=== PATIENT | female | born 1955 | race Caucasian/White ===

== ENCOUNTER 2017-06-03 12:52 | Emergency (ER) | payer BC, OTHER ==
[~2017-06-03] VITALS: Ht 170.2 cm; Wt 131.5 kg
--- NOTE | 2017-06-03 13:13 | ED Upper Extremity ---
General Stated Complaint: ARM INJURY Source: patient, family Exam Limitations: no limitations History of Present Illness Time seen by provider: 13:08 Initial Comments 62-year-old white female presents stating injury to her right arm when she fell while walking down steps shortly prior to presentation emergency department I believe her mechanism of injury was that she missed the banister with her left arm and then fell onto the right shoulder on the steps. She said complaint of pain where she felt a crack when she struck the stairs. The patient's pain is over the impact area located over the lateral portion of the proximal right humerus. The patient denies associated paresthesias or weakness to the right upper extremity. She denies other significant injury interaction. Past medical history pertinent to the present illness includes previous rotator cuff surgery to the right shoulder. Allergies and Home Medications Allergies Coded Allergies: No Known Drug Allergies (Unverified , 06/03/17) Constitutional: No chills, No fever EENTM: No hearing loss, No vision loss Respiratory: No cough Cardiovascular: No chest pain Gastrointestinal: no symptoms reported Genitourinary: no symptoms reported : No Musculoskeletal: see HPI, No back pain, No other (pain over the Roxanol portion of the right humerus.) Skin: no symptoms reported Psychiatric/Neurological: No Symptoms Reported Past Rhjpsav-Qzleep-Agmgod Hx Patient Social History Recent Foreign Travel: No Contact w/Someone Who Travel: No Reviewed Nursing Assessment Reviewed/Agree w Nursing PMH: Yes Physical Exam Vital Signs Vital Sign - Last 12Hours 06/03/17 12:52 Temp 98.1 B/P (MAP) 142/70 Pulse Ox 98 Capillary Refill : General Appearance: WD/WN, moderate distress HEENT: normal ENT inspection Neck: full range of motion, supple, normal inspection Cardiovascular: regular rate, rhythm, no edema, no gallop Respiratory: chest non-tender, lungs clear, normal breath sounds, no respiratory distress, no accessory muscle use Gastrointestinal: normal bowel sounds, non tender, soft Back: normal inspection, no CVA tenderness Shoulder: asymmetry, bone tenderness (the right humeral neck.), deformity (the superior portion of the right shoulder joint.), limited ROM Elbow/Forearm: normal inspection Wrist: Yes normal inspection Hand: normal inspection Neurologic/Tendon: normal sensation, normal motor functions, normal tendon functions Neurologic/Psychiatric: No no motor/sensory deficits, alert, normal mood/affect Skin: other (several small abrasions are noted over the anterior aspect of both knees.) Progress/Results/Core Measures Results/Orders My Orders Orders - NA MUNOZ MD Shoulder, Right, 3 Views (06/03/17 12:59) Fentanyl Injection (Sublimaze Injection (06/03/17 13:00) Ns Iv 1000 Ml (Sodium Chloride 0.9%) (06/03/17 13:00) Ondansetron Injection (Zofran Injectio (06/03/17 13:00) Fentanyl Injection (Sublimaze Injection (06/03/17 13:59) Midazolam Injection (Versed Injection) (06/03/17 14:00) Shoulder, Right, 1 View (06/03/17 14:15) Medications Given in ED Current Medications Medications Dose Ordered Sig/Malissa Route Start Time Stop Time Status Last Admin Dose Admin Fentanyl Citrate 50 mcg ONCE ONCE IVP 06/03/17 13:00 06/03/17 13:08 DC 06/03/17 13:29 50 MCG Midazolam HCl 4 mg ONCE ONCE IVP 06/03/17 14:00 06/03/17 14:01 DC 06/03/17 14:16 4 MG Ondansetron HCl 4 mg ONCE ONCE IVP 06/03/17 13:00 06/03/17 13:08 DC 06/03/17 13:29 4 MG Vital Signs/I&O Vital Sign - Last 12Hours 06/03/17 06/03/17 06/03/17 12:52 13:29 14:16 Temp 98.1 98.3 98.3 B/P (MAP) 142/70 Pulse Ox 98 Progress Note : Time: 14:23 Progress Note After discussion of the risks and benefits involved with a shoulder reduction the patient signed for the consent. IV Versed and fentanyl were used with good effect and the patient's shoulder was reduced. Post reduction x-ray appeared to demonstrate satisfactory alignment of the shoulder joint. There is normal neurovascular exam following the reduction. Patient tolerated the procedure well. I discussed findings with patient and family. Departure Impression Impression: Primary Impression: Dislocation of left shoulder joint Qualified Codes: S43.005A - Unspecified dislocation of left shoulder joint, initial encounter Disposition: 01 HOME, SELF-CARE Condition: Improved Departure-Patient Inst. Decision time for Depature: 14:24 Referrals: HAYLEY JAQUEZ MD (PCP) Primary Care Physician ROSALIA ROCHE MD Patient Instructions: DISLOCATED-JOINT Add. Discharge Instructions: Follow-up with your primary care physician and Dr. ROCHE on Tuesday. Vicodin for pain. Shoulder sling for comfort. Return if any problems or questions. NA MUNOZ MD Jun 03, 2017 13:13
[2017-06-03] MEDS: fentaNYL INJECTION 100 MCG/2 ML AMP IVP ONE (13:29)
[2017-06-03] MEDS: ONDANSETRON 4 MG/2 ML (SDV) Z0FRAN IVP ONE (13:29)
[2017-06-03] MEDS: NS IV 1000 ML 1,000 ML IV SCH (14:00)
[2017-06-03] MEDS: fentaNYL INJECTION 100 MCG/2 ML AMP IVP STA (14:16)
[2017-06-03] MEDS: MIDAZOLAM 5 MG/5 ML (VERSED) VIAL IVP ONE (14:16)
--- NOTE | 2017-06-03 14:18 | Diagnostic Imaging Report ---
INDICATION: Fall with pain. FINDINGS: There is anterior subcoracoid complete glenohumeral dislocation. No obvious acute fracture deformity. The post reduction radiographs recommended. There is bone anchor in the humeral head. There are arthritic changes to the AC joint. No AC joint separation. IMPRESSION: Anterior subcoracoid glenohumeral dislocation. Dictated by: Dictated on workstation # [id number]
--- NOTE | 2017-06-03 14:33 | Diagnostic Imaging Report ---
INDICATION: Post reduction. FINDINGS: There is successful reduction of the previous glenohumeral dislocation and acute fracture is not appreciable. IMPRESSION: There has been interval successful reduction of the prior subcoracoid glenohumeral dislocation. Dictated by: Dictated on workstation # [id number]
--- NOTE | 2017-06-03 15:42 | Diagnostic Imaging Report ---
INDICATION: Post reduction. COMPARISON: 06/03/2017 at 2:19 p.m. TIME OF EXAM: 06/03/2017 at 3:26 p.m. EXAMINATION: Two views of the shoulder were obtained. FINDINGS: There appears to be satisfactory reduction of the dislocation at the glenohumeral joint seen on a prior film from earlier this same date. The humeral head appears migrated cephalad, possibly related to rotator cuff tear. There are postoperative changes of the humeral head with multiple metallic anchors. No acute fracture is suspected. There are degenerative changes of the acromioclavicular joint. IMPRESSION: Alignment at the glenohumeral joint appears appropriate without evidence of fracture. There is cephalad migration of the humeral head suggestive of rotator cuff tear. There are postoperative changes suggestive of prior rotator cuff repair. Dictated by: Dictated on workstation # [id number]
[2017-06-03 16:00] VITALS: BP 138/68
== END 2017-06-03 16:00 | disposition home or self-care (01) ==
LOC: ER 12:59
DX: S43.005A Unspecified dislocation of left shoulder joint, initial encounter (principal); W10.9XXA Fall (on) (from) unspecified stairs and steps, initial encounter
CPT/HCPCS: 73020; 73030; 93041

== ENCOUNTER → 2019-06-19 | Outpatient (CLI) | payer BC ==
--- NOTE | 2019-06-19 13:51 | Diagnostic Imaging Report ---
INDICATION: Right hip pain. COMPARISON: None. FINDINGS: Two views of the right hip were obtained and show no fractures, dislocations, or other acute bony abnormalities. Joint spaces are well maintained throughout. The soft tissues appear unremarkable. No radiopaque foreign bodies are identified. IMPRESSION: Unremarkable radiographic exam of the right hip. Dictated by: Dictated on workstation # [id number]
== END ==
LOC: RAD FS 13:38
PROVIDERS: ATTEND Family Medicine
DX: M25.551 Pain in right hip (principal)
CPT/HCPCS: 73502

== ENCOUNTER 2022-12-03 17:13 | Emergency (ER) | payer MEDICARE, OTHER ==
[~2022-12-03] VITALS: Ht 170.2 cm; Wt 113.4 kg
--- NOTE | 2022-12-03 17:29 | ED Back Pain ---
General Chief Complaint: Back Problems Stated Complaint: LWR BACK PAIN; NAUSEA History of Present Illness Date Seen by Provider: Dec 03, 2022 Time Seen by Provider: 17:26 Initial Comments 67-year-old female with PMH of HTN/gastric sleeve/kidney stones last year which passed on its own/A-fib on Eliquis, and a loop recorder placed 10 years ago and has never been removed/hiatal hernia, is here with complaints of right flank pain and intermittent abdominal pain which began around 1 PM today afternoon. Patient states that the pain is intermittent and colicky in nature. Patient has associated nausea but no vomiting. Denies dysuria, hematuria, fever and chills, chest pain, palpitations, diarrhea. No known sick contacts. Patient has been having constipation on and off for the past few days as well. Allergies and Home Medications Allergies Coded Allergies: ciprofloxacin (Verified Allergy, Unknown, 12/03/22) glycopyrrolate (Verified Allergy, Unknown, 12/03/22) Patient Home Medication List Home Medication List Reviewed: Yes Review of Systems Constitutional: no symptoms reported EENTM: no symptoms reported Respiratory: no symptoms reported Cardiovascular: no symptoms reported Gastrointestinal: abdominal pain, nausea Genitourinary: no symptoms reported Musculoskeletal: no symptoms reported Skin: no symptoms reported Psychiatric/Neurological: No Symptoms Reported Past Uxdrsdy-Visskw-Meqmwx Hx Past Medical History Surgeries: Yes (knee replacement) Respiratory: No Cardiac: No Neurological: No Genitourinary: No Gastrointestinal: No Musculoskeletal: Yes Arthritis Endocrine: No HEENT: No Cancer: No Psychosocial: No Blood Disorders: No Physical Exam Vital Signs Vital Signs - First Documented 12/03/22 17:25 Temp 35.9 Pulse 59 Resp 16 B/P (MAP) 174/77 (109) Pulse Ox 98 O2 Delivery Room Air Capillary Refill : Height, Weight, BMI Height: 5'7.00" Weight: 290lbs. oz. 131.187193tc; BMI Method:Estimated General Appearance: No Apparent Distress, WD/WN HEENT: PERRL/EOMI Neck: Full Range of Motion Cardiovascular: Regular Rate, Rhythm, No Edema Respiratory: Chest Non Tender, Lungs Clear, Normal Breath Sounds Gastrointestinal: Normal Bowel Sounds, No Organomegaly, Soft, Tenderness (Right CVA tenderness and epigastric tenderness mild) Back: CVA Tenderness (R) Extremity: Normal Range of Motion Neurologic/Psychiatric: Alert, Oriented x3, No Motor/Sensory Deficits Skin: Normal Color Progress/Results/Core Measures Results/Orders Lab Results Laboratory Tests Test 12/03/22 17:25 12/03/22 18:20 Range/Units Urine Color YELLOW Urine Clarity CLEAR Urine pH 6.0 5-9 Urine Specific Easley >=1.030 1.016-1.022 Urine Protein NEGATIVE NEGATIVE Urine Glucose (UA) NEGATIVE NEGATIVE Urine Ketones NEGATIVE NEGATIVE Urine Nitrite NEGATIVE NEGATIVE Urine Bilirubin NEGATIVE NEGATIVE Urine Urobilinogen 0.2 < = 1.0 MG/DL Urine Leukocyte Esterase NEGATIVE NEGATIVE Urine RBC (Auto) NEGATIVE NEGATIVE Urine RBC NONE /HPF Urine WBC NONE /HPF Urine Squamous Epithelial Cells 5-10 /HPF Urine Crystals NONE /LPF Urine Bacteria TRACE /HPF Urine Casts NONE /LPF Urine Mucus SMALL H /LPF Urine Culture Indicated NO White Blood Count 7.2 4.3-11.0 10^3/uL Red Blood Count 4.00 3.80-5.11 10^6/uL Hemoglobin 12.8 11.5-16.0 g/dL Hematocrit 38 35-52 % Mean Corpuscular Volume 95 80-99 fL Mean Corpuscular Hemoglobin 32 25-34 pg Mean Corpuscular Hemoglobin Concent 34 32-36 g/dL Red Cell Distribution Width 13.1 10.0-14.5 % Platelet Count 200 130-400 10^3/uL Mean Platelet Volume 10.8 9.0-12.2 fL Immature Granulocyte % (Auto) 0 % Neutrophils (%) (Auto) 72 42-75 % Lymphocytes (%) (Auto) 19 12-44 % Monocytes (%) (Auto) 7 0-12 % Eosinophils (%) (Auto) 2 0-10 % Basophils (%) (Auto) 0 0-10 % Neutrophils # (Auto) 5.2 1.8-7.8 10^3/uL Lymphocytes # (Auto) 1.3 1.0-4.0 10^3/uL Monocytes # (Auto) 0.5 0.0-1.0 10^3/uL Eosinophils # (Auto) 0.1 0.0-0.3 10^3/uL Basophils # (Auto) 0.0 0.0-0.1 10^3/uL Immature Granulocyte # (Auto) 0.0 0.0-0.1 10^3/uL Sodium Level 139 135-145 MMOL/L Potassium Level 4.6 3.6-5.0 MMOL/L Chloride Level 103 98-107 MMOL/L Carbon Dioxide Level 27 21-32 MMOL/L Anion Gap 9 5-14 MMOL/L Blood Urea Nitrogen 21 H 7-18 MG/DL Creatinine 0.62 0.60-1.30 MG/DL Estimat Glomerular Filtration Rate 98 BUN/Creatinine Ratio 34 Glucose Level 92 70-105 MG/DL Lactic Acid Level 0.54 0.50-2.00 MMOL/L Calcium Level 9.0 8.5-10.1 MG/DL Corrected Calcium 8.8 8.5-10.1 MG/DL Total Bilirubin 0.2 0.1-1.0 MG/DL Aspartate Amino Transf (AST/SGOT) 20 5-34 U/L Alanine Aminotransferase (ALT/SGPT) 23 0-55 U/L Alkaline Phosphatase 84 40-136 U/L Total Protein 6.9 6.4-8.2 GM/DL Albumin 4.2 3.2-4.5 GM/DL My Orders Orders - QIAN LAWLER MD Ua Culture If Indicated (12/03/22 17:37) Cbc With Automated Diff (12/03/22 17:47) Comprehensive Metabolic Panel (12/03/22 17:47) Lactic Acid Analyzer (12/03/22 17:47) Ct Abdomen/Pelvis Wo (12/03/22 17:48) Vital Signs/I&O 12/03/22 17:25 Temp 35.9 Pulse 59 Resp 16 B/P (MAP) 174/77 (109) Pulse Ox 98 O2 Delivery Room Air Progress Progress Note : Progress Note 1. EARLY SMALL BOWEL OBSTRUCTION/ CONSTIPATION: - CT ABD: see report - Labs unremarkable with normal WBC - Zofran 4mg iv STAT - Colace/ senna in ER -Discussed with general surgery consult, Dr. Griffith. Will discharge home and have patient follow-up in his clinic since labs are normal. Liquid diet -Prescriptions for Zofran ODT as needed for nausea and vomiting, advised dtnu-zay-cywsgph stool softeners, advised follow-up with general surgery clinic. Call on Tuesday for appointment. Advised liquid diet -The patient was seen in the ED, and treated appropriately to presentation at a specific point in time. Patient is informed that there is a possibility that disease and illness can evolve and change in acuity rapidly or slowly after patient is discharged from the ER. Precautionary advice given to the patient for immediate return to ER if symptoms worsen or do not resolve, and to seek emergency care sooner rather than later. Pt also advised on the importance of PCP follow up and compliance with management and follow up plan with PCP and/or specialist, as this is part of the management plan. Pt verbally expressed und erstanding. Diagnostic Imaging Diagonstic Imaging: CT Plain Films/CT/US/NM/MRI: abdomen Comments [facility] [place] [place] NAME: VINITA CARPIO [facility] REC#: [id number] PT STATUS: REG ER : 1955 PHYSICIAN: QIAN LAWLER MD ADMIT DATE: 12/03/22/ER FS Draft Date of Exam:12/03/22 CT ABDOMEN/PELVIS WO PROCEDURE: CT abdomen and pelvis without contrast. TECHNIQUE: Multiple contiguous axial images were obtained through the abdomen and pelvis without the use of intravenous contrast. Auto Exposure Controls were utilized during the CT exam to meet ALARA standards for radiation dose reduction. INDICATION: Right-sided flank pain. COMPARISON: None. FINDINGS: The lung bases are clear. Cholecystectomy. Moderate esophageal hiatal hernia and postoperative changes in the stomach. The liver, pancreas, spleen, adrenals, left kidney, ureters and bladder are negative on this noncontrast exam. Hysterectomy. Punctate nonobstructing calyceal tip renal stones in the right kidney. Normal appendix. There are a few moderately dilated loops of small bowel within the central abdomen with the more distal small bowel decompressed. A focal transition point is not identified. No pneumatosis or portal venous gas. No free intraperitoneal air or fluid. No lymphadenopathy. No acute osseous finding. IMPRESSION: 1. There are a few dilated loops of small bowel in the central abdomen with more decompressed more distal small bowel. A focal transition point is not identified. Small bowel obstruction cannot be excluded. Findings could be due to an early partial small bowel obstruction. No pneumatosis or portal venous gas. No free intraperitoneal air or fluid. 2. Postoperative changes in the stomach. Moderate esophageal hiatal hernia. 3. Punctate nonobstructing calyceal tip renal stones in the lower pole of the right kidney. No ureteral stones or hydronephrosis. Dictated on workstation # [id number] Dict: 12/03/22 1806 Trans: 12/03/22 1821 [facility] [id number] Interpreted by: JESSIE MASON MD Electronically signed by: Departure Impression Primary Impression: Partial small bowel obstruction Disposition: HOME, SELF-CARE Condition: Stable Departure-Patient Inst. Referrals: HAYLEY JAQUEZ MD (PCP) Primary Care Physician PIPER GRIFFITH DO Patient Instructions: Small Bowel Obstruction (DC) Add. Discharge Instructions: -Prescriptions for Zofran ODT as needed for nausea and vomiting, advised msli-vqm-wyekvbt stool softeners, advised follow-up with general surgery clinic, Dr Griffith. Call on Tuesday for appointment. Advised liquid diet All discharge instructions reviewed with patient and/or family. Voiced understanding. QIAN LAWLER MD Dec 03, 2022 17:29
[2022-12-03 18:22] LABS: BASOPHILS % (AUTO) 0 % (0-10); EOSINOPHILS # (AUTO) 0.1 10^3/uL (0.0-0.3); EOSINOPHILS % (AUTO) 2 % (0-10); HEMATOCRIT 38 % (35-52); HEMOGLOBIN 12.8 g/dL (11.5-16.0); LYMPHOCYTES # (AUTO) 1.3 10^3/uL (1.0-4.0); LYMPHOCYTES % (AUTO) 19 % (12-44); MEAN CORPUSCULAR HEMOGLOBIN 32 pg (25-34); MEAN CORPUSCULAR HGB CONC 34 g/dL (32-36); MEAN CORPUSCULAR VOLUME 95 fL (80-99); MEAN PLATELET VOLUME 10.8 fL (9.0-12.2); MONOCYTES # (AUTO) 0.5 10^3/uL (0.0-1.0); MONOCYTES % (AUTO) 7 % (0-12); NEUTROPHILS # (AUTO) 5.2 10^3/uL (1.8-7.8); NEUTROPHILS % (AUTO) 72 % (42-75); PLATELET COUNT 200 10^3/uL (130-400); WHITE BLOOD COUNT 7.2 10^3/uL (4.3-11.0)
--- NOTE | 2022-12-03 18:22 | Diagnostic Imaging Report ---
PROCEDURE: CT abdomen and pelvis without contrast. TECHNIQUE: Multiple contiguous axial images were obtained through the abdomen and pelvis without the use of intravenous contrast. Auto Exposure Controls were utilized during the CT exam to meet ALARA standards for radiation dose reduction. INDICATION: Right-sided flank pain. COMPARISON: None. FINDINGS: The lung bases are clear. Cholecystectomy. Moderate esophageal hiatal hernia and postoperative changes in the stomach. The liver, pancreas, spleen, adrenals, left kidney, ureters and bladder are negative on this noncontrast exam. Hysterectomy. Punctate nonobstructing calyceal tip renal stones in the right kidney. Normal appendix. There are a few moderately dilated loops of small bowel within the central abdomen with the more distal small bowel decompressed. A focal transition point is not identified. No pneumatosis or portal venous gas. No free intraperitoneal air or fluid. No lymphadenopathy. No acute osseous finding. IMPRESSION: 1. There are a few dilated loops of small bowel in the central abdomen with more decompressed more distal small bowel. A focal transition point is not identified. Small bowel obstruction cannot be excluded. Findings could be due to an early partial small bowel obstruction. No pneumatosis or portal venous gas. No free intraperitoneal air or fluid. 2. Postoperative changes in the stomach. Moderate esophageal hiatal hernia. 3. Punctate nonobstructing calyceal tip renal stones in the lower pole of the right kidney. No ureteral stones or hydronephrosis. Dictated by: Dictated on workstation # [id number]
[2022-12-03 18:41] LABS: BILIRUBIN,URINE NEGATIVE (NEGATIVE); CLARITY,URINE CLEAR; COLOR,URINE YELLOW; GLUCOSE, URINE (UA) NEGATIVE (NEGATIVE); KETONES,URINE NEGATIVE (NEGATIVE); LEUKOCYTE ESTERASE ,URINE NEGATIVE (NEGATIVE); NITRITE,URINE NEGATIVE (NEGATIVE); PROTEIN,URINE NEGATIVE (NEGATIVE)
[2022-12-03 18:45] LABS: BACTERIA,URINE TRACE /HPF
[2022-12-03 18:47] LABS: ALBUMIN 4.2 GM/DL (3.2-4.5); BILIRUBIN,TOTAL 0.2 MG/DL (0.1-1.0); CREATININE SERUM 0.62 MG/DL (0.60-1.30); POTASSIUM 4.6 MMOL/L (3.6-5.0); TOTAL PROTEIN 6.9 GM/DL (6.4-8.2)
[2022-12-03] MEDS ORDERED: DOCUSATE SODIUM 100 MG (COLACE) CAP PO ONE (20:45)
[2022-12-03] MEDS ORDERED: ONDANSETRON 4 MG/2 ML (SDV) Z0FRAN IVP ONE (20:45)
[2022-12-03] MEDS ORDERED: SENNA W/DOCUSATE (SENOKOT S) TABLET PO ONE (20:45)
[2022-12-03] MEDS ORDERED: ONDANSETRON 4 MG/2 ML (SDV) Z0FRAN ONE (20:46)
[2022-12-03] MEDS ORDERED: polyethylene glycoL POWDER 17 GM (MIRALAX) PACK ONE (20:51)
[2022-12-03 20:58] VITALS: BP 160/67
[2022-12-03] MEDS ORDERED: polyethylene glycoL POWDER 17 GM (MIRALAX) PACK PO ONE (21:00)
[2022-12-03] MEDS ORDERED: RX-ONDANSETRON 4 MG ODT (ZOFRAN) PPK #4 PO PRN (21:00)
== END 2022-12-03 20:59 | disposition home or self-care (01) ==
LOC: EDUNIT# 17:13 → ER FS 17:16
DX: K56.600 Partial intestinal obstruction, unspecified as to cause (principal); I48.91 Unspecified atrial fibrillation; Z98.84 Bariatric surgery status; Z87.442 Personal history of urinary calculi; Z79.01 Long term (current) use of anticoagulants
CPT/HCPCS: 36415; 74176; 80053; 81000; 83605; 85025

== ENCOUNTER 2022-12-18 03:51 | Emergency (ER) | payer MEDICARE, OTHER ==
[2022-12-18] MEDS ORDERED: dilTIAZem DRIP PRE-MIX 125 ML IV STA (04:05)
--- NOTE | 2022-12-18 04:05 | ED Cardiac General ---
History of Present Illness General Chief Complaint: Cardiac/General Problems Stated Complaint: HEART RACING History of Present Illness Date Seen by Provider: Dec 18, 2022 Time Seen by Provider: 03:59 Initial Comments 67-year-old female with PMH of atrial fibrillation, currently on a monitor scheduled for an ablation at the end of December at , on Eliquis/HTN/gastric bypass surgery, is here with complaints of palpitations, due to fast heart rate. Patient states that she normally runs in the 50s for heart rate, and palpitations and fast heart rate began around 10:30 PM last night. Denies fever chills, chest pain, shortness of breath, URI symptoms, abdominal pain, dizziness, nausea and vomiting. Allergies and Home Medications Allergies Coded Allergies: ciprofloxacin (Verified Allergy, Unknown, 12/03/22) glycopyrrolate (Verified Allergy, Unknown, 12/03/22) Patient Home Medication List Home Medication List Reviewed: Yes Review of Systems Review of Systems Constitutional: no symptoms reported EENTM: No Symptoms Reported Respiratory: No Symptoms Reported Cardiovascular: Irregular Heart Rate, Palpitations Gastrointestinal: No Symptoms Reported Genitourinary: No Symptoms Reported Musculoskeletal: no symptoms reported Skin: no symptoms reported Psychiatric/Neurological: No Symptoms Reported Endocrine: No Symptoms Reported Hematologic/Lymphatic: No Symptoms Reported Past Pextdxu-Rymsad-Kogwil Hx Patient Social History Tobacco Use?: No Use of E-Cig and/or Vaping dev: No Substance use?: No Alcohol Use?: No Pt feels they are or have been: No Past Medical History Surgery/Hospitalization HX: A-fib, SVT, HTN Surgeries: Yes (knee replacement) Respiratory: No Cardiac: No Neurological: No Genitourinary: No Gastrointestinal: No Musculoskeletal: Yes Arthritis Endocrine: No HEENT: No Cancer: No Psychosocial: No Blood Disorders: No Physical Exam Vital Signs Vital Signs - First Documented 12/18/22 03:54 Pulse 105 Resp 20 B/P (MAP) 191/118 (142) Pulse Ox 98 O2 Delivery Room Air Capillary Refill : Height, Weight, BMI Height: 5'7.00" Weight: 290lbs. oz. 131.290404ds; 39.00 BMI Method:Estimated General Appearance: No Apparent Distress, WD/WN, Anxious, Mild Distress HEENT: PERRL/EOMI Neck: Full Range of Motion, Normal Inspection Respiratory: Chest Non Tender, Lungs Clear, Normal Breath Sounds, No Accessory Muscle Use Cardiovascular: Irregularly Irregular Gastrointestinal: Non Tender, Soft Extremity: Normal Range of Motion Neurologic/Psychiatric: Alert, Oriented x3, No Motor/Sensory Deficits, Normal Mood/Affect Skin: Normal Color Progress/Results/Core Measures Results/Orders Lab Results Laboratory Tests Test 12/18/22 04:03 Range/Units White Blood Count 8.7 4.3-11.0 10^3/uL Red Blood Count 4.71 3.80-5.11 10^6/uL Hemoglobin 15.0 11.5-16.0 g/dL Hematocrit 44 35-52 % Mean Corpuscular Volume 94 80-99 fL Mean Corpuscular Hemoglobin 32 25-34 pg Mean Corpuscular Hemoglobin Concent 34 32-36 g/dL Red Cell Distribution Width 13.1 10.0-14.5 % Platelet Count 201 130-400 10^3/uL Mean Platelet Volume 11.7 9.0-12.2 fL Immature Granulocyte % (Auto) 0 % Neutrophils (%) (Auto) 53 42-75 % Lymphocytes (%) (Auto) 35 12-44 % Monocytes (%) (Auto) 10 0-12 % Eosinophils (%) (Auto) 2 0-10 % Basophils (%) (Auto) 1 0-10 % Neutrophils # (Auto) 4.6 1.8-7.8 10^3/uL Lymphocytes # (Auto) 3.0 1.0-4.0 10^3/uL Monocytes # (Auto) 0.9 0.0-1.0 10^3/uL Eosinophils # (Auto) 0.1 0.0-0.3 10^3/uL Basophils # (Auto) 0.1 0.0-0.1 10^3/uL Immature Granulocyte # (Auto) 0.0 0.0-0.1 10^3/uL Sodium Level 142 135-145 MMOL/L Potassium Level 3.9 3.6-5.0 MMOL/L Chloride Level 101 98-107 MMOL/L Carbon Dioxide Level 27 21-32 MMOL/L Anion Gap 14 5-14 MMOL/L Blood Urea Nitrogen 19 H 7-18 MG/DL Creatinine 0.73 0.60-1.30 MG/DL Estimat Glomerular Filtration Rate 91 BUN/Creatinine Ratio 26 Glucose Level 106 H 70-105 MG/DL Calcium Level 9.8 8.5-10.1 MG/DL Corrected Calcium 9.4 8.5-10.1 MG/DL Magnesium Level 2.3 1.6-2.4 MG/DL Total Bilirubin 0.4 0.1-1.0 MG/DL Aspartate Amino Transf (AST/SGOT) 24 5-34 U/L Alanine Aminotransferase (ALT/SGPT) 24 0-55 U/L Alkaline Phosphatase 101 40-136 U/L Troponin I < 0.30 <0.30 NG/ML Pro-B-Type Natriuretic Peptide 198.3 H <125.0 PG/ML Total Protein 8.4 H 6.4-8.2 GM/DL Albumin 4.5 3.2-4.5 GM/DL My Orders Orders - QIAN LAWLER MD Chest 1 View Ap/Pa Only (12/18/22 03:54) Ekg Tracing (12/18/22 03:54) Diltiazem Injection (Cardizem Injection) (12/18/22 04:15) Diltiazem Drip Pre-Mix (Cardizem Drip Pr (12/18/22 04:05) Cbc With Automated Diff (12/18/22 04:07) Comprehensive Metabolic Panel (12/18/22 04:07) Magnesium (12/18/22 04:07) Probnp Fs (12/18/22 04:07) Troponin I Fs (12/18/22 04:07) Ed Iv/Invasive Line Start (12/18/22 04:22) Medications Given in ED Current Medications Medications Dose Ordered Sig/Malissa Route Start Time Stop Time Status Last Admin Dose Admin Diltiazem HCl 10 mg ONCE ONCE IVP 12/18/22 04:15 12/18/22 04:16 DC 12/18/22 04:14 10 MG Vital Signs/I&O 12/18/22 12/18/22 12/18/22 03:54 04:14 04:20 Pulse 105 98 96 Resp 20 B/P (MAP) 191/118 (142) 182/75 182/75 Pulse Ox 98 O2 Delivery Room Air Progress Progress Note : Progress Note 1. ATRIAL FIBRILLATION: - CXR no acute findings - Labs: unremarkable - EKG: A-fib - Cardizem bolus 10mg iv, and drip, converted - Phone consult to EP [employer] Resource Economist at , Dr Dickey, advised to increase Diltiazem to 240mg bid and follow up this Tuesday at her cardiology appointment - Pt has Diltizem 240mg at home, which was the dose she used to be on. -Ablation scheduled at for later this month. -The patient was seen in the ED, and treated appropriately to presentation at a specific point in time. Patient is informed that there is a possibility that disease and illness can evolve and change in acuity rapidly or slowly after patient is discharged from the ER. Precautionary advice given to the patient for immediate return to ER if symptoms worsen or do not resolve, and to seek emergency care sooner rather than later. Pt also advised on the importance of PCP follow up and compliance with management and follow up plan with PCP and/or specialist, as this is part of the management plan. Pt verbally expressed understanding. Initial ECG Impression Date: Dec 18, 2022 Initial ECG Impression Time: 03:59 Initial ECG Rate: 102 Initial ECG Impression: Atrial Fibrillation Departure Impression Primary Impression: Atrial fibrillation Qualified Codes: I48.19 - Other persistent atrial fibrillation Disposition: 01 HOME, SELF-CARE Condition: Improved Departure-Patient Inst. Referrals: HAYLEY JAQUEZ MD (PCP/Family) Primary Care Physician Patient Instructions: Atrial Fibrillation Add. Discharge Instructions: - Increase Diltiazem to 240mg bid - follow up this Tuesday at cardiology appointment All discharge instructions reviewed with patient and/or family. Voiced under standing. QIAN LAWLER MD Dec 18, 2022 04:05
[2022-12-18 04:34] LABS: BASOPHILS # (AUTO) 0.1 10^3/uL (0.0-0.1); BASOPHILS % (AUTO) 1 % (0-10); EOSINOPHILS # (AUTO) 0.1 10^3/uL (0.0-0.3); EOSINOPHILS % (AUTO) 2 % (0-10); HEMATOCRIT 44 % (35-52); LYMPHOCYTES % (AUTO) 35 % (12-44); MEAN CORPUSCULAR HEMOGLOBIN 32 pg (25-34); MEAN CORPUSCULAR HGB CONC 34 g/dL (32-36); MEAN CORPUSCULAR VOLUME 94 fL (80-99); MEAN PLATELET VOLUME 11.7 fL (9.0-12.2); MONOCYTES # (AUTO) 0.9 10^3/uL (0.0-1.0); MONOCYTES % (AUTO) 10 % (0-12); NEUTROPHILS # (AUTO) 4.6 10^3/uL (1.8-7.8); NEUTROPHILS % (AUTO) 53 % (42-75); PLATELET COUNT 201 10^3/uL (130-400); WHITE BLOOD COUNT 8.7 10^3/uL (4.3-11.0)
[2022-12-18 05:00] LABS: ALANINE AMINOTRANSFERASE 24 U/L (0-55); ALBUMIN 4.5 GM/DL (3.2-4.5); ALKALINE PHOSPHATASE 101 U/L (40-136); BILIRUBIN,TOTAL 0.4 MG/DL (0.1-1.0); BUN/CREATININE RATIO 26; CALCIUM 9.8 MG/DL (8.5-10.1); CARBON DIOXIDE 27 MMOL/L (21-32); CHLORIDE 101 MMOL/L (98-107); CREATININE SERUM 0.73 MG/DL (0.60-1.30); GFR ESTIMATED 91; GLUCOSE 106 MG/DL (70-105); MAGNESIUM 2.3 MG/DL (1.6-2.4); POTASSIUM 3.9 MMOL/L (3.6-5.0); SODIUM 142 MMOL/L (135-145); TOTAL PROTEIN 8.4 GM/DL (6.4-8.2)
[2022-12-18 06:17] VITALS: BP 144/64
--- NOTE | 2022-12-18 06:29 | Diagnostic Imaging Report ---
EXAM: CHEST 1 VIEW AP/PA ONLY INDICATION: Tachycardia. COMPARISON: None. FINDINGS: Normal heart size and central pulmonary vascularity. Lungs are clear. No pleural effusion or pneumothorax. No acute osseous findings. IMPRESSION: No acute cardiopulmonary findings. Dictated by: Dictated on workstation # [id number]
[2022-12-18] MEDS ORDERED: DILT240C87 PO (06:54)
== END 2022-12-18 06:22 | disposition home or self-care (01) ==
LOC: EDUNIT# 03:51 → ER FS 03:54
DX: I48.91 Unspecified atrial fibrillation (principal); Z79.01 Long term (current) use of anticoagulants; Z28.310 Unvaccinated for COVID-19
CPT/HCPCS: 36415; 71045; 80053; 83735; 83880; 84484; 85025; 93005

== ENCOUNTER 2023-08-18 07:25 | Emergency (ER) | payer MEDICARE, OTHER ==
[~2023-08-18] VITALS: Ht 170.2 cm; Wt 114.3 kg
[~2023-08-18 07:25] MED LIST: DILT240C74 PO
--- NOTE | 2023-08-18 07:44 | ED Cardiac General ---
History of Present Illness General Chief Complaint: Cardiac/General Problems Stated Complaint: A-FIB History of Present Illness Date Seen by Provider: Aug 18, 2023 Time Seen by Provider: 07:31 Initial Comments 38-year-old female with PMH of HTN/A-fib on Eliquis/CHF, is here with complaints of palpitations which began around 2 AM today morning. Patient had associated chest pain at the time but has since resolved. Denies recent illness, fever and chills, current chest pain, shortness of breath, abdominal pain, diaphoresis, dizziness, headache, leg pain. Patient took her Cardizem, Lasix and spironolactone just prior to coming to the ER. Allergies and Home Medications Allergies Coded Allergies: ciprofloxacin (Verified Allergy, Unknown, 12/03/22) glycopyrrolate (Verified Allergy, Unknown, 12/03/22) Patient Home Medication List Home Medication List Reviewed: Yes Diltiazem HCl (Diltiazem ER) 240 Mg Capsule.er, 240 MG PO BID Prescribed by: QIAN LAWLER MD on 12/18/22 0654 Review of Systems Review of Systems Constitutional: no symptoms reported EENTM: No Symptoms Reported Respiratory: No Symptoms Reported Cardiovascular: Irregular Heart Rate, Palpitations Gastrointestinal: No Symptoms Reported Past Yuhkwmm-Cgrrdu-Nncomx Hx Past Medical History Surgery/Hospitalization HX: A-fib, SVT, HTN Surgeries: Yes (knee replacement) Respiratory: No Cardiac: No Neurological: No Genitourinary: No Gastrointestinal: No Musculoskeletal: Yes Arthritis Endocrine: No HEENT: No Cancer: No Psychosocial: No Blood Disorders: No Physical Exam Vital Signs Vital Signs - First Documented 08/18/23 07:29 Temp 36.7 Pulse 133 Resp 18 B/P (MAP) 160/98 (118) O2 Delivery Room Air Capillary Refill : Height, Weight, BMI Height: 5'7.00" Weight: 290lbs. oz. 131.457070eg; 39.00 BMI Method:Estimated General Appearance: No Apparent Distress, WD/WN HEENT: PERRL/EOMI Neck: Full Range of Motion Respiratory: Chest Non Tender, Lungs Clear, Normal Breath Sounds Cardiovascular: Irregularly Irregular, Tachycardia, Other (Bilateral pitting pedal edema present, Homans' sign negative) Gastrointestinal: Normal Bowel Sounds, Non Tender, Soft Neurologic/Psychiatric: Alert, Oriented x3 Skin: Normal Color Progress/Results/Core Measures Results/Orders Lab Results Laboratory Tests Test 08/18/23 07:39 Range/Units White Blood Count 6.4 4.3-11.0 10^3/uL Red Blood Count 3.88 3.80-5.11 10^6/uL Hemoglobin 12.8 11.5-16.0 g/dL Hematocrit 40 35-52 % Mean Corpuscular Volume 102 H 80-99 fL Mean Corpuscular Hemoglobin 33 25-34 pg Mean Corpuscular Hemoglobin Concent 32 32-36 g/dL Red Cell Distribution Width 11.9 10.0-14.5 % Platelet Count 198 130-400 10^3/uL Mean Platelet Volume 10.9 9.0-12.2 fL Immature Granulocyte % (Auto) 0 % Neutrophils (%) (Auto) 56 42-75 % Lymphocytes (%) (Auto) 30 12-44 % Monocytes (%) (Auto) 11 0-12 % Eosinophils (%) (Auto) 3 0-10 % Basophils (%) (Auto) 1 0-10 % Neutrophils # (Auto) 3.6 1.8-7.8 10^3/uL Lymphocytes # (Auto) 1.9 1.0-4.0 10^3/uL Monocytes # (Auto) 0.7 0.0-1.0 10^3/uL Eosinophils # (Auto) 0.2 0.0-0.3 10^3/uL Basophils # (Auto) 0.0 0.0-0.1 10^3/uL Immature Granulocyte # (Auto) 0.0 0.0-0.1 10^3/uL Prothrombin Time 13.6 12.2-14.7 SEC INR Comment 1.0 0.8-1.4 Activated Partial Thromboplast Time 27 24-35 SEC D-Dimer 0.50 H 0.00-0.49 UG/ML Sodium Level 140 135-145 MMOL/L Potassium Level 4.1 3.6-5.0 MMOL/L Chloride Level 104 98-107 MMOL/L Carbon Dioxide Level 25 21-32 MMOL/L Anion Gap 11 5-14 MMOL/L Blood Urea Nitrogen 16 7-18 MG/DL Creatinine 0.67 0.60-1.30 MG/DL Estimat Glomerular Filtration Rate 96 BUN/Creatinine Ratio 24 Glucose Level 91 70-105 MG/DL Calcium Level 9.2 8.5-10.1 MG/DL Corrected Calcium 9.3 8.5-10.1 MG/DL Magnesium Level 2.2 1.6-2.4 MG/DL Total Bilirubin 0.4 0.1-1.0 MG/DL Aspartate Amino Transf (AST/SGOT) 20 5-34 U/L Alanine Aminotransferase (ALT/SGPT) 15 0-55 U/L Alkaline Phosphatase 76 40-136 U/L Troponin I < 0.30 <0.30 NG/ML Pro-B-Type Natriuretic Peptide 557.8 H <125.0 PG/ML Total Protein 7.4 6.4-8.2 GM/DL Albumin 3.9 3.2-4.5 GM/DL My Orders Orders - QIAN LAWLER MD Continuous Ekg Monitoring (08/18/23 07:44) Ekg Tracing (08/18/23 07:44) Chest 1 View Ap/Pa Only (08/18/23 07:44) Cbc And Automated Diff (08/18/23 07:45) Comprehensive Metabolic Panel (08/18/23 07:45) Fibrin Degradation Products (08/18/23 07:45) Magnesium (08/18/23 07:45) Protime With Inr (08/18/23 07:45) Partial Thromboplastin Time (08/18/23 07:45) Probnp Fs (08/18/23 07:45) Troponin I Fs (08/18/23 07:45) Diltiazem Injection (Diltiazem Injection (08/18/23 07:45) Diltiazem Drip Pre-Mix (Diltiazem Drip P (08/18/23 07:45) Metoprolol Succinate (Xl) Tab (Metoprolo (08/18/23 10:30) Medications Given in ED Current Medications Medications Dose Ordered Sig/Malissa Route Start Time Stop Time Status Last Admin Dose Admin Diltiazem HCl 5 mg ONCE ONCE IVP 08/18/23 07:45 08/18/23 07:47 DC 08/18/23 08:02 5 MG Metoprolol Succinate 25 mg ONCE ONCE PO 08/18/23 10:30 08/18/23 10:31 DC 08/18/23 10:35 25 MG Vital Signs/I&O 08/18/23 08/18/23 08/18/23 07:29 08:02 08:03 Temp 36.7 Pulse 133 133 133 Resp 18 B/P (MAP) 160/98 (118) 145/73 145/73 O2 Delivery Room Air Progress Progress Note : Progress Note 1. A-FIB WITH RVR: - CXR: no acute findings - EKG: A-FIB with RVR - Troponin: undetectable - CBC/ CMP: unremarkable - BNP: 554 - D-dimer unremarkable - Cardizem bolus and drip: heart rate improved from 140's to 100's , and took a few hours to do so, Added Metoprolol 25mg , oral as well and the heart rate improved to 80's. -Advised patient to go back to taking Cardizem twice a day instead of once a day until she sees her atlassian administrator or PCP. Specifically instructed patient to take the second dose today evening. -Follow-up with cardiology and PCP within the next 3 to 7 days. -I have kept the patient in the ER for a few hours since she was refusing admission due to her family being in town, and wanted to make sure her heart rate improved to the normal range prior to discharging her from the ER. Since it took a few hours for her to cardiovert, longer than planned. - The patient was seen in the ED, and treated appropriately to presentation at a specific point in time. Patient is informed that there is a possibility that disease and illness can evolve and change in acuity rapidly or slowly after patient is discharged from the ER. Precautionary advice given to the patient for immediate return to ER if symptoms worsen or do not resolve, and to seek emergency care sooner rather than later. Pt also advised on the importance of PCP follow up and compliance with management and follow up plan with PCP and/or specialist, as this is part of the management plan. Pt verbally expressed understanding. EKG : EKG Time: 07:36 Rate: 120 Rhythm: A Fib/Flutter ECG Comparisson: No Previous ECG Available Diagnostic Imaging Diagonstic Imaging: Xray Plain Films/CT/US/NM/MRI: chest Comments [facility]. [place], [place] NAME: FELICIA CARPIOPRAVIN [facility] REC#: [id number] PT STATUS: REG ER : 1955 PHYSICIAN: QIAN LAWLER MD ADMIT DATE: 08/18/23/ER FS Draft Date of Exam:08/18/23 CHEST 1 VIEW AP/PA ONLY EXAMINATION: PA chest at 8:08 AM INDICATION: Atrial fibrillation COMPARISON: 12/18/2022 FINDINGS: The heart size is stable when compared to the prior exam. The lungs are clear. There is no evidence for failure, pneumonia or for a pleural effusion. The mediastinum is not widened. The osseous structures are intact. The total shoulder prosthesis on the right seen previously is again evident as is the battery pack overlying the cardiac silhouette. However, the dual battery pack overlying the left upper lung noted on the prior exam is no longer evident. IMPRESSION: There is no evidence for active disease. When compared to the prior exam, there has been no significant change. Dictated on workstation # [id number] Dict: 08/18/23 0854 Trans: 08/18/2304 AYAN [id number] Interpreted by: SHAI MONTELONGO MD Electronically signed by: Departure Impression Primary Impression: Atrial fibrillation with RVR Disposition: HOME, SELF-CARE Condition: Improved Departure-Patient Inst. Referrals: HAYLEY JAQUEZ MD (PCP/Family) Primary Care Physician Patient Instructions: Atrial fibrillation Add. Discharge Instructions: -Advised patient to go back to taking Cardizem twice a day instead of once a day until she sees her atlassian administrator or PCP. Specifically instructed patient to take the second dose today evening. -Follow-up with cardiology and PCP within the next 3 to 7 days. All discharge instructions reviewed with patient and/or family. Voiced understanding. QIAN LAWLER MD Aug 18, 2023 07:44
[2023-08-18] MEDS ORDERED: dilTIAZem INJ 25 MG/5 ML VIAL IVP ONE (07:45)
[2023-08-18] MEDS ORDERED: dilTIAZem DRIP PRE-MIX 125 ML IV STA (07:45)
[2023-08-18 07:56] LABS: BASOPHILS % (AUTO) 1 % (0-10); EOSINOPHILS # (AUTO) 0.2 10^3/uL (0.0-0.3); EOSINOPHILS % (AUTO) 3 % (0-10); HEMATOCRIT 40 % (35-52); HEMOGLOBIN 12.8 g/dL (11.5-16.0); LYMPHOCYTES # (AUTO) 1.9 10^3/uL (1.0-4.0); LYMPHOCYTES % (AUTO) 30 % (12-44); MEAN CORPUSCULAR HEMOGLOBIN 33 pg (25-34); MEAN CORPUSCULAR HGB CONC 32 g/dL (32-36); MEAN CORPUSCULAR VOLUME 102 fL (80-99); MEAN PLATELET VOLUME 10.9 fL (9.0-12.2); MONOCYTES # (AUTO) 0.7 10^3/uL (0.0-1.0); MONOCYTES % (AUTO) 11 % (0-12); NEUTROPHILS # (AUTO) 3.6 10^3/uL (1.8-7.8); NEUTROPHILS % (AUTO) 56 % (42-75); PLATELET COUNT 198 10^3/uL (130-400); WHITE BLOOD COUNT 6.4 10^3/uL (4.3-11.0)
[2023-08-18 08:14] LABS: CARBON DIOXIDE 25 MMOL/L (21-32); CHLORIDE 104 MMOL/L (98-107); POTASSIUM 4.1 MMOL/L (3.6-5.0); SODIUM 140 MMOL/L (135-145)
[2023-08-18 08:15] LABS: BILIRUBIN,TOTAL 0.4 MG/DL (0.1-1.0); CALCIUM 9.2 MG/DL (8.5-10.1); MAGNESIUM 2.2 MG/DL (1.6-2.4); TOTAL PROTEIN 7.4 GM/DL (6.4-8.2)
[2023-08-18 08:26] LABS: ALANINE AMINOTRANSFERASE 15 U/L (0-55); ALKALINE PHOSPHATASE 76 U/L (40-136); BUN/CREATININE RATIO 24; CREATININE SERUM 0.67 MG/DL (0.60-1.30); GFR ESTIMATED 96; GLUCOSE 91 MG/DL (70-105)
[2023-08-18 08:29] LABS: ALBUMIN 3.9 GM/DL (3.2-4.5)
[2023-08-18 08:40] LABS: FIBRIN DEGRADATION PRODUCTS 0.5 UG/ML (0.00-0.49); PROTHROMBIN TIME PATIENT 13.6 SEC (12.2-14.7)
--- NOTE | 2023-08-18 09:04 | Diagnostic Imaging Report ---
EXAMINATION: PA chest at 8:08 AM INDICATION: Atrial fibrillation COMPARISON: 12/18/2022 FINDINGS: The heart size is stable when compared to the prior exam. The lungs are clear. There is no evidence for failure, pneumonia or for a pleural effusion. The mediastinum is not widened. The osseous structures are intact. The total shoulder prosthesis on the right seen previously is again evident as is the battery pack overlying the cardiac silhouette. However, the dual battery pack overlying the left upper lung noted on the prior exam is no longer evident. IMPRESSION: There is no evidence for active disease. When compared to the prior exam, there has been no adverse change. Dictated by: Dictated on workstation # [id number]
[2023-08-18 12:48] VITALS: BP 131/74
== END 2023-08-18 12:40 | disposition home or self-care (01) ==
LOC: EDUNIT# 07:25 → ER FS 07:26
DX: I48.91 Unspecified atrial fibrillation (principal); Z79.01 Long term (current) use of anticoagulants
CPT/HCPCS: 36415; 71045; 80053; 83735; 83880; 84484; 85025; 85379; 85610; 85730; 93005; 96374